=== PATIENT | female | born 1990 | race Caucasian/White ===

== ENCOUNTER 2019-04-04 19:13 | Emergency (ER) | payer OTHER ==
[~2019-04-04] VITALS: Ht 160 cm; Wt 78.1 kg
[2019-04-04 19:26] VITALS: BP 153/72
--- NOTE | 2019-04-04 19:28 | NUR ---
TO LOBBY AWATING BED IN ED, VSS.
--- NOTE | 2019-04-04 21:18 | NUR ---
PT REMAINS IN LOBBY IN STABLE CONDITION, AWAITNG BED IN ED.
[2019-04-04] MEDS ORDERED: IBUPROFEN 600 MG TAB PO ONE (21:45)
--- NOTE | 2019-04-04 21:53 | NUR ---
dPatient discharged with v/s stable. Written and verbal after care instructions given and explained. Patient alert, oriented and verbalized understanding of instructions. Ambulatory with steady gait. All questions addressed prior to discharge. ID band removed. Patient advised to follow up with PMD. Rx of ibuprofen, flexeril given. Patient educated on indication of medication including possible reaction and side effects. Opportunity to ask questions provided and answered.
[2019-04-04 21:54] VITALS: BP 155/70
== END 2019-04-04 21:53 | disposition home or self-care (01) ==
LOC: MED 19:13
DX: S39.012A Strain of muscle, fascia and tendon of lower back, initial encounter (principal); V89.2XXA Person injured in unspecified motor-vehicle accident, traffic, initial encounter; Y93.89 Activity, other specified; Y92.89 Other specified places as the place of occurrence of the external cause; Y99.8 Other external cause status
CPT/HCPCS: 72110; 99283

== ENCOUNTER 2024-05-22 08:06 | Emergency (ER) | payer OTHER ==
[~2024-05-22] VITALS: Ht 157.5 cm; Wt 79.4 kg
[2024-05-22 08:23] VITALS: BP 138/84; PULSE 59; RESP 16; TEMP 98.1; O2SAT 100
[2024-05-22] MEDS ORDERED: CEPH-588 PO (09:37)
== END 2024-05-22 09:46 | disposition home or self-care (01) ==
LOC: MED 08:06
DX: H00.012 Hordeolum externum right lower eyelid (principal)
CPT/HCPCS: 99283